=== PATIENT | male | born 1985 | race Caucasian/White ===

== ENCOUNTER 2019-04-10 12:34 | Emergency (ER) | payer OTHER ==
[~2019-04-10] VITALS: Ht 167.6 cm; Wt 97.1 kg
[2019-04-10 12:37] VITALS: BP 136/91; Ht 167.6 cm; Wt 97.1 kg
== END 2019-04-10 15:28 | disposition home or self-care (01) ==
LOC: ED 12:34
DX: J11.1 Influenza due to unidentified influenza virus with other respiratory manifestations (principal)